=== PATIENT | male | born 1950 | race Caucasian/White ===

== ENCOUNTER 2021-01-20 09:21 | Outpatient (CLI) | payer MEDICARE ==
--- NOTE | 2021-01-20 10:13 | MRI ---
MRI Cervical spine without contrast: HISTORY: Cervical radiculitis. Patient complains of bilateral hand and finger tingling greater on the left. COMPARISON: None FINDINGS: The craniocervical junction is unremarkable. No significant cord signal abnormality. Paravertebral soft tissues have a normal appearance and normal signal intensity. Multilevel degenerative changes are seen in the cervical spine C1-2:No significant stenosis. C2-3: Mild disc osteophyte complex is present which results in minimal flattening of the ventral suba rachnoid space. Mild facet degenerative changes are present resulting in minimal left-sided neural foraminal narrowing. The right neural foramen is patent. C3-4: Mild disc osteophyte complex and uncinate process hypertrophy. This narrows the ventral subarac hnoid space with encroachment on the anterior aspect of the spinal cord. Mild facet degenerative changes are present. Moderate bilateral neural foraminal narrowing is present. C4-5: Broad-based disc osteophyte complex with central disc protrusion. There is effacement of the ve ntral subarachnoid space with flattening of the anterior aspect of the spinal cord. Mild facet hypertrophic changes are present. Mild bilateral neural foraminal narrowing is present. C5-6: Loss of intervertebral disc height with minimal endplate degenerative changes. Broad-based disc osteophyte complex is present with prominent uncinate process hypertrophy on the right. There is effacement of ventral subarachnoid space with flattening of the anterior aspect of the spinal cord. L eft neural foramen is patent, but there is severe right-sided neural foraminal narrowing primarily attributable to bony encroachment. C6-7: Loss of intervertebral disc height with broad-based disc osteophyte complex. There is effacemen t of the ventral subarachnoid space with mild flattening of the anterior aspect of the spinal cord. Moderate right and moderate to severe left-sided neural foraminal narrowing are present. Facet hypert rophic changes are present at this level. C7-T1: There is no disc bulge or disc herniation. The central spinal canal and neural foramina are pa tent. IMPRESSION: Multilevel degenerative changes throughout the cervical spine with varying degrees of neural foramina l narrowing with moderate and severe degrees of neural foraminal narrowing as described above.
== END 2021-01-20 09:22 | disposition home or self-care (01) ==
LOC: SCSMRI 09:21
PROVIDERS: ATTEND Orthopaedic Surgery Hand Surgery
DX: M47.22 Other spondylosis with radiculopathy, cervical region (principal); M48.02 Spinal stenosis, cervical region
CPT/HCPCS: 72141

== ENCOUNTER 2023-11-06 01:05 | Inpatient (IN) | payer MEDICARE ==
[2023-11-06 03:07] VITALS: BMI 25.4
[2023-11-06] MEDS ORDERED: Morphine 4 MG/ML VIAL SLOW IVP SCH (03:15)
[2023-11-06] MEDS ORDERED: Lactated Ringer's 1,000 ML IV SCH (03:15)
[2023-11-06] MEDS ORDERED: Ondansetron PF 4 MG/2 ML Vial IVP PRN (03:17)
[2023-11-06] MEDS ORDERED: Acetaminophen 325 MG TAB PO PRN (03:17)
[2023-11-06] MEDS ORDERED: Lorazepam 2 MG/ML VIAL SLOW IVP PRN (03:38)
[2023-11-06] MEDS: Multivit, Therapeutic 1 TAB PO SCH (08:06)
[2023-11-06] MEDS: Thiamine 100 MG TAB PO SCH (08:06)
[2023-11-06] MEDS: Morphine 2 MG/ML VIAL SLOW IVP PRN ×4 (08:06→20:18)
[2023-11-06] MEDS: Lactated Ringer's 1,000 ML IV SCH ×3 (08:07→15:35)
[2023-11-06] MEDS: Folic Acid 1 MG TAB PO SCH (08:07)
[2023-11-06] MEDS ORDERED: Famotidine/PF 20 mg/2ml Vial SLOW IVP SCH (09:00)
[2023-11-06 10:23] LABS: Acetaminophen Less than 10 mcg/mL (10.0-30.0); Alcohol Less than 10.0 mg/dL (Less than 10); Salicylate Less than 8.0 mg/dL (15.0-30.0)
[2023-11-06 11:03] LABS: Amphetamine Not Detected (NotDetected); Barbiturates Screen Not Detected (NotDetected); Benzodiazepine Screen Not Detected (NotDetected); Cocaine Metabolite Screen Not Detected (NotDetected); Methadone Not Detected (NotDetected); Methamphetamine Not Detected (NotDetected); Opiate Screen Detected (NotDetected); Oxycodone Screen Not Detected (NotDetected); Phencyclidine (PCP) Not Detected (NotDetected); THC/Cannabinoid Screen Detected (NotDetected); Tricyclic Screen Not Detected (NotDetected)
[2023-11-06] MEDS ORDERED: Iopamidol 370 76% 100 ML VIAL ONE (11:11)
[2023-11-07] MEDS: Lactated Ringer's 1,000 ML IV SCH ×6 (00:29→22:38)
[2023-11-07] MEDS: Morphine 2 MG/ML VIAL SLOW IVP PRN (02:48)
[2023-11-07 07:08] LABS: #Basophils 0.1 thou/uL (0.0-0.2); #Monocytes 2.1 thou/uL (0.11-0.59); %Basophils 0.4 % (0.0-1.0); %Eosinophils 0.1 % (0.0-10.0); %Lymphocytes 11.7 % (21.0-51.0); %Monocytes 12.2 % (0.0-10.0); %Neutrophils 75.1 % (42.0-75.0); Hematocrit 41.5 % (42.0-52.0); Mean Corpuscular HGB CONC 33.7 g/dL (32.0-36.0); Mean Corpuscular Hemoglobin 30.6 pg (27.0-31.0); Mean Corpuscular Volume 90.6 fl (78.0-98.0); Mean Platelet Volume 9.6 fL (7.4-10.4); Platelet Count 324 10x3/uL (130-400); RBC Distribution Width 13.4 % (11.5-14.5); Red Blood Cell (RBC) Count 4.58 mill/uL (4.70-6.10); White Blood Cell (WBC) Count 17.3 10x3/uL (4.8-10.8)
[2023-11-07 07:36] LABS: Anion Gap 13 mmol/L (10-20); BUN (Urea Nitrogen) 8 mg/dL (8.4-25.7); Calc. Creatinine Clearance 90 mL/min (70-130); Carbon Dioxide 28 mmol/L (23-31); Chloride 98 mmol/L (98-107); Estimated GFR 91; Glucose 89 mg/dL (83-110); Lipase 87 U/L (8-78); Sodium 135 mmol/L (136-145)
[2023-11-07] MEDS: Folic Acid 1 MG TAB PO SCH (07:48)
[2023-11-07] MEDS: Thiamine 100 MG TAB PO SCH (07:48)
[2023-11-07] MEDS: Multivit, Therapeutic 1 TAB PO SCH (07:48)
[2023-11-07 08:23] LABS: ALT (SGPT) 13 U/L (8-55); AST (SGOT) 16 U/L (5-34); Albumin 3.7 g/dL (3.4-4.8); Alkaline Phosphatase 76 U/L (40-110); Bilirubin, Direct 0.4 mg/dL (0.1-0.3); Bilirubin, Total 1.1 mg/dL (0.2-1.2)
[2023-11-07] MEDS: HYDROcodone/Acetaminophen 10/325 mg Tablet PO PRN ×2 (10:46→18:20)
[2023-11-08] MEDS: Lactated Ringer's 1,000 ML IV SCH ×3 (05:42→09:10)
[2023-11-08] MEDS: Thiamine 100 MG TAB PO SCH (07:48)
[2023-11-08] MEDS: Multivit, Therapeutic 1 TAB PO SCH (07:48)
[2023-11-08] MEDS: Folic Acid 1 MG TAB PO SCH (07:49)
[2023-11-08] MEDS: HYDROcodone/Acetaminophen 10/325 mg Tablet PO PRN (07:49)
[2023-11-08 10:58] VITALS: BP 128/76; TEMP 98.1
== END 2023-11-08 11:02 | disposition home or self-care (01) | DRG 440 ==
LOC: T4-A 02:34 → OBSVTOIN 03:17
PROVIDERS: ADMIT Student in an Organized Health Care Education/Training Program; ATTEND Internal Medicine
DX: K85.20 Alcohol induced acute pancreatitis without necrosis or infection (principal); K21.9 Gastro-esophageal reflux disease without esophagitis; F12.929 Cannabis use, unspecified with intoxication, unspecified; F10.90 Alcohol use, unspecified, uncomplicated; F41.9 Anxiety disorder, unspecified; K22.70 Barrett's esophagus without dysplasia; Z88.0 Allergy status to penicillin; Z79.899 Other long term (current) drug therapy; Z90.49 Acquired absence of other specified parts of digestive tract; Z98.890 Other specified postprocedural states
CPT/HCPCS: 36415; 74177; 76700; 80048; 80061; 80076; 80306; 80307; 83690; 85025; J2270; J2272; J7120; Q9967; S0028

== ENCOUNTER 2024-11-14 13:52 | Emergency (ER) | payer MEDICARE, OTHER | END 2024-11-14 17:43 | disposition short-term general hospital (02) | LOC: ERS 13:52 | DX: M86.8X4 Other osteomyelitis, hand (principal); M00.9 Pyogenic arthritis, unspecified | CPT/HCPCS: 99284 ==

== ENCOUNTER 2024-11-25 10:11 | Emergency (ER) | payer MEDICARE, OTHER | END 2024-11-25 12:21 | disposition home or self-care (01) | LOC: ERS 10:11 | DX: M86.141 Other acute osteomyelitis, right hand (principal) | CPT/HCPCS: 99283 ==